=== PATIENT | female | born 1960 | race Caucasian/White ===

== ENCOUNTER → 2019-11-17 15:38 | Outpatient (CLI) | payer SELFPAY ==
[2019-11-17 10:13] VITALS: BMI 30.9
== END ==
PROVIDERS: Visit Provider Nurse Practitioner
DX: T14.8XXA Other injury of unspecified body region, initial encounter (principal)
CPT/HCPCS: 87075

== ENCOUNTER → 2021-02-20 21:20 | Outpatient (CLI) | payer OTHER, SELFPAY ==
[2021-02-20 17:49] VITALS: BMI 29.5
[2021-02-20 21:30] LABS: Absolute Lymphocyte Count 3.51 X10^3/uL (0.83-4.51); Absolute Neutrophil Count 4.4 X10^3/uL (2.0-7.7); Basophil# 0.08 X10^3/uL; Basophil% 0.9 % (0-1); Eosinophils% 2.3 % (0-5); Hematocrit 42.7 % (37-47); Hemoglobin 14.1 g/dL (12.0-15.0); Lymphocyte # 3.51 X10^3/ul (4.0); Lymphocyte % 40.3 % (19-41); Mean Corpuscular Hgb 29.1 pg (27.0-32.0); Mean Platelet Vol. 10.9 fl (6.2-12.0); Monocyte# 0.52 X10^3/uL; NRBC Flagged by Analyzer 0 % (0-5); Neutrophil # 4.39 X10^3/uL (2.7-7.7); Neutrophil % 50.4 % (47-70); Platelet Count 340 K/mm3 (150-450); RBC Distribution Width CV 12.4 % (11.6-14.6); RBC Distribution Width SD 40.1 fl (35.1-43.9); Red Blood Count 4.85 M/mm3 (4.2-5.4); White Blood Count 8.7 K/mm3 (4.4-11.0)
[2021-02-20 21:41] LABS: AST(SGOT) 13 U/L (15-37); Alanine Aminotransfer ALT/SGPT 26 U/L (13-56); Albumin, Serum 3.9 g/dL (3.2-5.0); Alkaline Phosphatase 115 U/L (45-117); Anion Gap 3 (5-15); BUN 22 mg/dL (7-18); BUN/Creat Ratio 27.2 RATIO (10-20); Calcium,Total 9.5 mg/dL (8.5-10.1); Chloride 100 mmol/L (98-107); Cholesterol 199 mg/dL (200); Creatinine, Serum 0.81 mg/dL (0.55-1.02); EST Glomerular Filtration Rate 77 mL/min (>60); Est Glom Filt Rate - Afr Amer 93 mL/min (>60); Globulin 3.8 g/dL (2.2-4.2); Glucose 382 mg/dL (74-106); High Density Lipoprotein 40 mg/dL; Potassium 4.8 mmol/L (3.5-5.1); Protein, Total 7.7 g/dL (6.4-8.2); Sodium Level 133 mmol/L (136-145); Triglycerides 222 mg/dL; Very Low Density Lipoprotein 44 mg/dL (5-40)
== END ==
PROVIDERS: PCP Nurse Practitioner; Referring Provider Nurse Practitioner; Visit Provider Nurse Practitioner
DX: E13.9 Other specified diabetes mellitus without complications (principal); I10 Essential (primary) hypertension
CPT/HCPCS: 80053; 80061; 85025

== ENCOUNTER → 2021-08-28 21:28 | Outpatient (CLI) | payer OTHER, SELFPAY | PROVIDERS: PCP Nurse Practitioner; Referring Provider Nurse Practitioner; Visit Provider Nurse Practitioner | DX: E13.9 Other specified diabetes mellitus without complications (principal) ==

== ENCOUNTER → 2022-06-14 | Outpatient (CLI) | payer OTHER, SELFPAY ==
[2022-06-14 21:42] LABS: Absolute Lymphocyte Count 3.26 X10^3/uL (0.83-4.51); Absolute Neutrophil Count 5.7 X10^3/uL (2.0-7.7); Basophil# 0.09 X10^3/uL; Basophil% 0.9 % (0-1); Eosinophil# 0.24 X10^3/uL; Eosinophils% 2.4 % (0-5); Hematocrit 45.9 % (37-47); Hemoglobin 14.9 g/dL (12.0-15.0); Lymphocyte # 3.26 X10^3/ul (0.83-4.51); Lymphocyte % 32.6 % (19-41); Mean Corp Hgb Conc 32.5 g/dL (32-36); Mean Corpuscular Hgb 29.8 pg (27.0-32.0); Mean Corpuscular Volume 91.8 fL (81-99); Mean Platelet Vol. 10.3 fl (6.2-12.0); Monocyte# 0.71 X10^3/uL; Monocyte% 7.1 % (0-10); NRBC Flagged by Analyzer 0 % (0-5); Neutrophil # 5.69 X10^3/uL (2.7-7.7); Neutrophil % 56.8 % (47-70); Platelet Count 365 K/mm3 (150-450); RBC Distribution Width CV 13.7 % (11.6-14.6); RBC Distribution Width SD 46.7 fl (35.1-43.9)
[2022-06-14 22:02] LABS: Vitamin B12 646 pg/mL (211-911)
[2022-06-14 22:03] LABS: ALB/GLOB Ratio 1.3 RATIO (0.9-2.4); AST(SGOT) 15 U/L (15-37); Alanine Aminotransfer ALT/SGPT 24 U/L (13-56); Albumin, Serum 3.9 g/dL (3.2-5.0); Alkaline Phosphatase 87 U/L (45-117); Anion Gap 6 (5-15); BUN 20 mg/dL (7-18); BUN/Creat Ratio 24.8 RATIO (10-20); Calcium,Total 9.5 mg/dL (8.5-10.1); Chloride 106 mmol/L (98-107); Cholesterol 111 mg/dL (200); Creatinine, Serum 0.81 mg/dL (0.55-1.02); EST Glomerular Filtration Rate 77 mL/min (>60); Est Glom Filt Rate - Afr Amer 93 mL/min (>60); Globulin 3.1 g/dL (2.2-4.2); Glucose 228 mg/dL (74-106); High Density Lipoprotein 39 mg/dL; Potassium 5.3 mmol/L (3.5-5.1); Sodium Level 140 mmol/L (136-145); Triglycerides 189 mg/dL; Very Low Density Lipoprotein 38 mg/dL (5-40)
== END | disposition home or self-care (01) ==
PROVIDERS: Referring Provider Nurse Practitioner; Visit Provider Nurse Practitioner
DX: E11.65 Type 2 diabetes mellitus with hyperglycemia (principal); I10 Essential (primary) hypertension; R53.83 Other fatigue
CPT/HCPCS: 80053; 80061; 82607; 84443; 85025

== ENCOUNTER → 2022-09-30 | Outpatient (CLI) | payer OTHER, SELFPAY ==
[2022-09-30 22:05] LABS: Absolute Lymphocyte Count 3.36 X10^3/uL (0.83-4.51); Absolute Neutrophil Count 9.8 X10^3/uL (2.0-7.7); Basophil% 0.7 % (0-1); Eosinophil# 0.39 X10^3/uL; Eosinophils% 2.7 % (0-5); Hematocrit 45.4 % (37-47); Hemoglobin 14.3 g/dL (12.0-15.0); Lymphocyte # 3.36 X10^3/ul (0.83-4.51); Lymphocyte % 22.8 % (19-41); Mean Corp Hgb Conc 31.5 g/dL (32-36); Mean Corpuscular Hgb 28.5 pg (27.0-32.0); Mean Corpuscular Volume 90.6 fL (81-99); Mean Platelet Vol. 10.8 fl (6.2-12.0); Monocyte# 1.06 X10^3/uL; Monocyte% 7.2 % (0-10); NRBC Flagged by Analyzer 0 % (0-5); Neutrophil # 9.75 X10^3/uL (2.7-7.7); Neutrophil % 66.3 % (47-70); Platelet Count 310 K/mm3 (150-450); RBC Distribution Width SD 46.5 fl (35.1-43.9); Red Blood Count 5.01 M/mm3 (4.2-5.4); White Blood Count 14.7 K/mm3 (4.4-11.0)
[2022-09-30 22:55] LABS: ALB/GLOB Ratio 1.1 RATIO (0.9-2.4); AST(SGOT) 18 U/L (15-37); Alanine Aminotransfer ALT/SGPT 26 U/L (13-56); Albumin, Serum 3.9 g/dL (3.2-5.0); Alkaline Phosphatase 96 U/L (45-117); Anion Gap 8 (5-15); BUN 20 mg/dL (7-18); BUN/Creat Ratio 25.1 RATIO (10-20); Calcium,Total 9.6 mg/dL (8.5-10.1); Chloride 104 mmol/L (98-107); EST Glomerular Filtration Rate 78 mL/min (>60); Est Glom Filt Rate - Afr Amer 94 mL/min (>60); Globulin 3.6 g/dL (2.2-4.2); Glucose 128 mg/dL (74-106); Lipase 79 U/L (73-393); Potassium 4.6 mmol/L (3.5-5.1); Protein, Total 7.5 g/dL (6.4-8.2); Sodium Level 138 mmol/L (136-145)
== END | disposition home or self-care (01) ==
PROVIDERS: Visit Provider Nurse Practitioner
DX: R11.10 Vomiting, unspecified (principal); E11.65 Type 2 diabetes mellitus with hyperglycemia; K21.9 Gastro-esophageal reflux disease without esophagitis
CPT/HCPCS: 80053; 83036; 83690; 85025; 86141

== ENCOUNTER → 2023-01-31 | Outpatient (CLI) | payer BC, SELFPAY ==
[2023-01-31 22:36] LABS: Absolute Lymphocyte Count 3.32 X10^3/uL (0.83-4.51); Absolute Neutrophil Count 5.2 X10^3/uL (2.0-7.7); Basophil# 0.06 X10^3/uL; Basophil% 0.6 % (0-1); Eosinophil# 0.24 X10^3/uL; Eosinophils% 2.5 % (0-5); Hematocrit 43.8 % (37-47); Lymphocyte # 3.32 X10^3/ul (0.83-4.51); Lymphocyte % 34.9 % (19-41); Mean Corpuscular Hgb 29.2 pg (27.0-32.0); Mean Corpuscular Volume 91.3 fL (81-99); Mean Platelet Vol. 10.4 fl (6.2-12.0); Monocyte# 0.68 X10^3/uL; Monocyte% 7.1 % (0-10); NRBC Flagged by Analyzer 0 % (0-5); Neutrophil # 5.21 X10^3/uL (2.7-7.7); Neutrophil % 54.8 % (47-70); Platelet Count 347 K/mm3 (150-450); RBC Distribution Width CV 13.2 % (11.6-14.6); RBC Distribution Width SD 44.5 fl (35.1-43.9); White Blood Count 9.5 K/mm3 (4.4-11.0)
[2023-01-31 22:55] LABS: AST(SGOT) 16 U/L (15-37); Alanine Aminotransfer ALT/SGPT 28 U/L (13-56); Albumin, Serum 3.8 g/dL (3.2-5.0); Alkaline Phosphatase 78 U/L (45-117); Anion Gap 7 (5-15); BUN 23 mg/dL (7-18); BUN/Creat Ratio 25.8 RATIO (10-20); CRP, High Sensitivity Cardiac 0.82 mg/L; Calcium,Total 9.5 mg/dL (8.5-10.1); Chloride 105 mmol/L (98-107); Creatinine, Serum 0.89 mg/dL (0.55-1.02); EST Glomerular Filtration Rate 68 mL/min (>60); Est Glom Filt Rate - Afr Amer 82 mL/min (>60); Glucose 132 mg/dL (74-106); Protein, Total 7.8 g/dL (6.4-8.2); Sodium Level 139 mmol/L (136-145)
== END | disposition home or self-care (01) ==
PROVIDERS: Visit Provider Nurse Practitioner
DX: R19.7 Diarrhea, unspecified (principal); E11.65 Type 2 diabetes mellitus with hyperglycemia; R79.82 Elevated C-reactive protein (CRP)
CPT/HCPCS: 80053; 85025; 86141

== ENCOUNTER → 2023-02-08 | Outpatient (CLI) | payer BC, SELFPAY | END | disposition home or self-care (01) | PROVIDERS: Visit Provider Nurse Practitioner | DX: R30.0 Dysuria (principal); N30.90 Cystitis, unspecified without hematuria | CPT/HCPCS: 87086; 87088 ==

== ENCOUNTER → 2023-03-03 | Outpatient (CLI) | payer BC, SELFPAY | END | disposition home or self-care (01) | PROVIDERS: Referring Provider Nurse Practitioner; Visit Provider Nurse Practitioner | DX: R35.0 Frequency of micturition (principal) | CPT/HCPCS: 87086; 87088 ==

== ENCOUNTER → 2023-04-06 | Outpatient (CLI) | payer BC, SELFPAY | END | disposition home or self-care (01) | PROVIDERS: Visit Provider Nurse Practitioner | DX: R35.0 Frequency of micturition (principal) | CPT/HCPCS: 87086; 87088 ==

== ENCOUNTER → 2023-05-11 | Outpatient (CLI) | payer BC, SELFPAY | END | disposition home or self-care (01) | PROVIDERS: Visit Provider Nurse Practitioner | DX: R35.0 Frequency of micturition (principal) | CPT/HCPCS: 87086 ==

== ENCOUNTER → 2023-05-26 | Outpatient (CLI) | payer BC, SELFPAY ==
--- NOTE | 2023-05-26 | CYSPIN_PTH ---
PATIENT: SRIRAM PICKERING LOC: [facility] U#:[id number] AGE/SX: 63/F ROOM: RE05/26/[address]: Dr. Brittni Griffin MD : 1960 BED: DIS: 05/26/2023 SPEC #: [id number] RECD: 05/26/23 15:00 STATUS: SUZANNE MCKINNEY #: [id number] JUAN: 05/26/23 00:[address]: Brittni Griffin DEPT: CYTOLOGY RECD BY: Belén Amin Tissues: Urine Procedures: Pap Stain (control) Special Stain Group II Special Stain Group I GMS Stain (control) Cytospin Fluid HEADER OPERATION: Not noted PRE-OP DIAGNOSIS: Gross hematuria TISSUE SUBMITTED: Urine for cytology DIAGNOSIS CYTOLOGY Urine for cytology (cytospin): Atypical urothelial cells (AUC) is noted, Veronica System Category III. Marked acute inflammation. See comment. NEGIN:edna 05/27/2023 COMMENT Special stain for fungi is positive for numerous organisms (yeast); matched control is appropriate. Clinical correlation and appropriate follow up are necessary. The Veronica System for urine cytology diagnostic categorization was used in the evaluation of this case. Case has been reviewed in consultation with Dr. Cohn who concurs with the above diagnosis. IDC:AM CYTOLOGY STUDY Slides are reviewed. CYTOLOGY GROSS Received is 20 ml of cloudy sue fluid labeled with the patient's name and and designated per the requisition as urine. Submitted for cytology preparation. / edna 05/26/2023 TC:2 CPT: 14381, 17638
[2023-05-26 17:46] LABS: Cytology, Body Fluid / CSF SEE PATHOLOGY REPORT
== END | disposition home or self-care (01) ==
PROVIDERS: Visit Provider Urology
DX: R31.0 Gross hematuria (principal)
CPT/HCPCS: 88108; 88312; 88313

== ENCOUNTER → 2023-06-08 | Outpatient (CLI) | payer BC, SELFPAY ==
--- NOTE | 2023-06-08 06:52 | CT_ITS ---
INDICATION: FLANK PAIN/ABD PAIN/URGENCY EXAMINATION: CT ABDOMEN AND PELVIS WITHOUT CONTRAST - CT Abdomen And Pelvis W/O Contrast Injection TECHNIQUE: Helically acquired images were obtained of the abdomen and pelvis without oral or IV contrast. A radiation dose optimization technique was used for this scan. IV Contrast dosage and agent: None. Oral contrast: None. RADIATION DOSAGE (If Supplied By Facility): CTDIvol = ( 6.68 ) mGy, DLP = ( 335.50 ) mGycm COMPARISON: FINDINGS: LOWER CHEST: Lung bases are clear. No cardiomegaly or pericardial effusion. There are calcifications of the coronary arteries and aortic valve annulus. LIVER: Homogeneous. No focal mass. Portal vein diameter is 13 mm. GALLBLADDER AND BILIARY TREE: No calcified gallstones. No gallbladder distension or wall edema. No intra- or extrahepatic biliary ductal dilation. PANCREAS: No focal cystic or solid mass. SPLEEN: Normal size without focal cystic or solid mass. ADRENAL GLANDS: No nodules. KIDNEYS AND URETERS: Normal renal size and position. No hydronephrosis. PERITONEUM: No ascites or free air. No other fluid collection. BOWEL: Very small hiatal hernia is suggested. No evidence of acute appendicitis. No stomach or bowel distension. A 2.3 x 1.25 x 1.6 cm collection of gas and debris projecting to severs anterior to the spine at the mid abdomen (series 2 image 66, series 601 image 54) is difficult to connect with adjacent loops of nong[place] filled bowel, but may be a diverticulum at the junction of the third and fourth portions of the duodenum. No focal inflammatory change. LYMPH NODES: No enlarged mesenteric or retroperitoneal lymph nodes. VESSELS: Moderate to moderately severe atherosclerotic calcific plaquing of the infrarenal aorta and common iliac arteries. Aorta is non-dilated. URINARY BLADDER: Unremarkable. REPRODUCTIVE ORGANS: Normal size, retroflexed uterus. No pelvic masses. ABDOMINAL WALL: No discrete abdominal or pelvic wall hernia. BONES: Degenerative changes are seen in the lower thoracic and lower lumbar spine, the latter particularly involving the L4-5 and L5-S1 facet joints. No lytic or blastic abnormality. CT/Abdomen/Pelvis without Cont IMPRESSION: 1. No distinct CT finding to account for the patient''s complaints. 2. Very small hiatal hernia suggested. 3. Mild to moderate aortoiliac atherosclerotic calcific plaquing. No aortic aneurysm. 4. Lower lumbar facet arthropathies. Electronically Signed: Inocencio Cruz MD at 9:00 EDT Reading Location ID and State: [id number] / Unknown , Service support ,
== END | disposition home or self-care (01) ==
LOC: CT 06:49
PROVIDERS: PCP Nurse Practitioner; Referring Provider Urology; Visit Provider Urology
DX: R10.30 Lower abdominal pain, unspecified (principal); R39.15 Urgency of urination
CPT/HCPCS: 74176

== ENCOUNTER 2023-07-07 10:57 | Day surgery (SDC) | payer BC, SELFPAY ==
--- NOTE | 2023-07-05 09:21 | EKG12_ITS ---
Test Reason : PRE OP Blood Pressure : / mmHG Vent. Rate : 102 BPM Atrial Rate : 102 BPM P-R Int : 132 ms QRS Dur : 088 ms QT Int : 344 ms P-R-T Axes : 033 015 050 degrees QTc Int : 448 ms Sinus tachycardia Low voltage QRS Borderline ECG Confirmed by SUJEY MARCIAL ([id number]), editor managing director LISS CADE ([id number]) on 07/11/2023 1:50:37 PM Referred By: Brittni Griffin Confirmed By:SUJEY MARCIAL
[2023-07-05 10:12] LABS: Hematocrit 44.4 % (37-47); Hemoglobin 14.1 g/dL (12.0-15.0); Mean Corp Hgb Conc 31.8 g/dL (32-36); Mean Corpuscular Hgb 30.1 pg (27.0-32.0); Mean Corpuscular Volume 94.7 fL (81-99); Mean Platelet Vol. 9.5 fl (6.2-12.0); Platelet Count 346 K/mm3 (150-450); RBC Distribution Width CV 13.2 % (11.6-14.6); RBC Distribution Width SD 45.4 fl (35.1-43.9); Red Blood Count 4.69 M/mm3 (4.2-5.4)
[2023-07-05 10:44] LABS: Anion Gap 4 (5-15); BUN 13 mg/dL (7-18); BUN/Creat Ratio 19.9 RATIO (10-20); Chloride 104 mmol/L (98-107); Creatinine, Serum 0.65 mg/dL (0.55-1.02); EST Glomerular Filtration Rate 97 mL/min (>60); Est Glom Filt Rate - Afr Amer 118 mL/min (>60); Glucose 159 mg/dL (74-106); Potassium 4.4 mmol/L (3.5-5.1); Sodium Level 138 mmol/L (136-145)
[2023-07-05 10:47] LABS: Hemoglobin A1c 8.1 % (3.8-5.6)
[2023-07-07] VITALS (7 sets, daily range): BP systolic 83–118; BP diastolic 55–71; PULSE 94–108; RESP 16–18; TEMP 36.2–37.1; O2SAT 92–99; BMI 26.1
--- NOTE | 2023-07-07 | VUL_PTH ---
PATIENT: SRIRAM PICKERING LOC: [facility] [place] U#:[id number] AGE/SX: 63/F ROOM: RE07/07/[address]: Dr. Brittni Griffin MD : 1960 BED: DIS: 07/07/2023 SPEC #: [id number] RECD: 07/07/23 14:08 STATUS: SUZANNE HURDAdelaida #: [id number] JUAN: 07/07/23 00:[address]: Brittni Griffin DEPT: SURGICAL PATHOLOGY RECD BY: Alek Cedillo ENTERED: 07/08/23 08:01 SP TYPE: VULVA BX OTHR DR: Luann Christensen, AUTO BODY CUSTOMIZER-C Tissues: Vulva, NOS Procedures: Surgery Specimen Level IV HEADER OPERATION: Urethral dilation, cysto, vulvar biopsy PRE-OP DIAGNOSIS: Recurrent UTI, vulvar lesion TISSUE SUBMITTED: Vulvar biopsy MICROSCOPIC DIAGNOSIS Vulvar biopsy: High-grade squamous epithelial lesion, vulvar intraepithelial neoplasia (ELVIE II), lateral margin involved. See comment. SJ:edna 07/20/2023 COMMENT The specimen is sent to [facility] for expert opinion, reviewed by Dr. Jesus Decker and the above diagnosis is rendered. Dr. Jesus Decker also commented increased mitosis is present. Ki67 increased stain and P16 negative. The complete report is viewable in the patient's EMR. Results from immunohistochemistry ([id number]) for surrogate HPV marker (p16) will be reported separately. Case has been reviewed in consultation with Dr. Cohn who concurs with the above diagnosis. IDC:AM MICROSCOPIC DESCRIPTION Slides are reviewed. GROSS DESCRIPTION Received in fixative is one container labeled with the patient's name and designated vulvar biopsy. The specimen consists of one irregular fragment of light keys soft tissue that measures 0.2 x 0.2 x 0.1 cm. The specimen is totally submitted in one cassette. / AM:edna 07/08/2023 TC: CPT: 51670
--- NOTE | 2023-07-07 | IMM_PTH ---
PATIENT: SRIRAM PICKERING LOC: [facility] [place] U#:[id number] AGE/SX: 63/F ROOM: RE07/07/[address]: Dr. Brittni Griffin MD : 1960 BED: DIS: 07/07/2023 SPEC #: [id number] RECD: 07/12/23 14:07 STATUS: SUZANNE REAdelaida #: [id number] JUAN: 07/07/23 00:[address]: Brittni Griffin DEPT: IMMUNOHISTOCHEMISTRY RECD BY: Neema Enrique ENTERED: 07/12/23 14:08 SP TYPE: IMMUNO OTHR DR: Luann Christensen, PATIENT SUPPORT SPECIALIST-C Tissues: Vulva, NOS Procedures: p16 (initial) KI-67 (add) PHYSICIAN & INSTITUTION [place] [id number] SPECIMEN INFORMATION: Tissue Source: Vulva Clinical Info: Recurrent UTI, vulvar lesion Specimen Number: [id number] CPT code: 27039, 71624 METHODOLOGY: Deparaffinized sections of prefer/formalin-fixed tissue or PAP/DQ stained slides are incubated with monoclonal/polyclonal antibodies/oligonucleotide probes. Localization is made via biotin free immunoperoxidase method. Appropriate controls are performed and reacted as expected. Results on target cell population are indicated in the following table: RESULTS: ANTIBODY / CLONE RESULT P16 (E6H4) negative Ki-67 (30-9) positive, 95% These tests were developed and their performance characteristics determined by [facility]. They may not have been cleared or approved by the U.S. Food and Drug Administration. The FDA has determined that such clearance or approval is not necessary. The above immunohistochemical/dualISH markers are ordered and reviewed by the Pathologist. INTERPRETATION: Vulvar biopsy: High-grade squamous epithelial lesion, vulvar intraepithelial neoplasia (ELVIE II), lateral margin involved. See comment. NEGIN:edna 07/20/2023 Comment: The specimen is sent to [facility] for expert opinion, reviewed by Dr. Jesus Decker and the above diagnosis is rendered. The complete report is viewable in the patient's EMR. Case has been reviewed in consultation with Dr. Cohn who concurs with the above diagnosis. IDC:AM
--- NOTE | 2023-07-07 10:52 | PCM.OPRPT ---
Report of Operation Date of Procedure: 07/07/23 Pre-Operative Diagnosis: Recurrent urinary tract infections, urethral stenosis, vulvar lesion Post-Operative Diagnosis: Same Surgery/Procedure Performed:: Urethral dilation, cystourethroscopy, vulvar biopsy Surgeon: Brittni Griffin Type of Anesthesia: MAC Specimen's removed: Vulvar punch biopsy Description of Procedure: The patient is a 63-year-old female with recurrent urinary tract infections. On attempted cystoscopy in the office, it was found that the urethra was strictured and I was unable to pass the cystoscope. She now presents for urethral dilation, cystoscopy with possible biopsy and vulvar biopsy for lesion identified in the midline. Informed consent has been obtained. The patient was taken to the operating room and placed on the operating room table. Anesthesia monitored the head, neck, airway, IV access and vital signs throughout the case. Once anesthesia was appropriately administered, the patient was placed into dorsolithotomy position was prepped and draped in usual sterile fashion. The urethra was then dilated starting with 12 Filipino dilators and sequentially increasing to a total of 30 Filipino. There was cracking of the mucosa. The cystoscope was then inserted through the urethra under direct visualization into the urinary bladder. The bladder mucosa was visualized in its entirety. The detrusor was found to be hypertrophic with several diverticula, none of which appeared to have mucosal changes consistent with cancer. There was a significant amount of debris and erythema of the tissue likely secondary to where the dilators were inserted. There were no areas of concern for cancer. bilateral ureteral orifices were located in the correct anatomic position on the area of the trigone. At this time attention was turned towards the 3 mm midline vulvar sclerotic lesion. Local anesthetic 1 cc was injected underneath the lesion. A punch biopsy was used to gain full-thickness tissue which was sent for permanent section evaluation. Silver nitrate was applied to the biopsy site. The patient was then awakened and taken to the recovery room in good condition. There were no complications during this procedure. Complications None Admit VTE Documentation VTE Present on Admission: Yes VTE Mechan Device Prophylaxis: SCD's VTE Pharm Prophylaxis ordered?: No Reason prophylaxis not ordered:: Treatment Not Indicated
--- NOTE | 2023-07-07 10:55 | EX.PCM.DISCH ---
Discharge Instructions Diet Discharge Diet: No restrictions Activity Discharge Activity: Return to Normal Activity Dressing / Incision Call your doctor if your incision/area has: Continuous Slow Oozing, Sudden Increased Bleeding, Increased Pain/ Swelling, Increased Redness, Foul Smelling Discharge and Swelling at the incision site Call your doctor if you observe: Fever of 101 or Higher, Inability to urinate and Inability to have a bowel movement Follow Up Care Please Follow Up With: Brittni Griffin MD When: The office will call the patient tomorrow to make arrangements for follow-up next week for biopsy results Test Results: Test results from this visit will be discussed in further detail at your follow-up appointment, if applicable. Discharge Plan Admission Attending Provider: Brittni Griffin Primary Care Provider: Luann Christensen NP Discharge Orders/Prescriptions Prescriptions: New sulfamethoxazole-trimethoprim [sulfamethoxazole-trimethoprim] 800-160 mg tablet 1 tab PO BID 3 Days Qty: 6 0RF oxycodone-acetaminophen [Percocet] 5-325 mg tablet 1 tab PO Q8H PRN (Reason: pain) 3 Days Qty: 6 0RF Continued cholecalciferol (vitamin D3) 25 mcg (1,000 unit) capsule 25 mcg PO DAILY vitamin B complex [B Complex-Vitamin B12] Tablet 1 tab PO DAILY omega-3 fatty acids 500 mg capsule 500 mg PO DAILY (DME) pen needle, diabetic [BD Ultra-Fine Teresa Pen Needle] 32 gauge x 5/32 needle See Rx Instructions .ROUTE .MEDSUPPLY Qty: 50 12RF Rx Instructions: As directed rosuvastatin [Crestor] 5 mg tablet 5 mg PO DAILY Qty: 30 12RF Jardiance 25 mg tablet 25 mg PO QAM Qty: 30 12RF metformin 850 mg tablet 850 mg PO BID Qty: 180 3RF Lantus Solostar U-100 Insulin 100 unit/mL (3 mL) insulin pen 35 unit SC DAILY Patient Comments: 19 u before surgery Rx Instructions: 20U am 25 U PM glimepiride 2 mg tablet 2 mg PO DAILY Patient Comments: TAKE 1 TABLET BY MOUTH ONCE DAILY with the first main meal. (to be taken in combination with pioglitazone) acetaminophen 325 mg capsule 650 mg PO Q4H PRN (Reason: pain) pantoprazole 40 mg tablet,delayed release (DR/EC) 40 mg PO DAILY PRN (Reason: GERD) zolpidem 10 mg tablet 10 mg PO QHS PRN (Reason: insomnia) Qty: 30 5RF dulaglutide 4.5 mg/0.5 mL pen injector 4.5 mg subcut QWEEK Qty: 2 12RF Referrals / Follow Up: Luann Christensen EXHAUST MACHINE OPERATOR, EXHAUST MACHINE OPERATOR-C [Primary Care Provider] - Disposition Disposition (needs filled in before D/C Order can be placed): Home, Self Care
[2023-07-07 11:44] LABS: Bedside Glucose 185 mg/dL (74-106)
[2023-07-07] MEDS: Lactated Ringers 1,000 ML 15 ML IV (11:45)
[2023-07-07] MEDS: Ciprofloxacin 400 MG/200 ML BAG 200 MG IV (11:50)
[2023-07-07] MEDS: Bupivacaine Mpf 0.5% 30 ML VIAL (12:30)
[2023-07-07] MEDS: Silver Nitrate (BKC) 1 EACH (12:40)
== END 2023-07-07 13:40 | disposition home or self-care (01) ==
LOC: SDC 10:59 → AC 11:00
PROVIDERS: Anesthesiology; PCP Nurse Practitioner; Referring Provider Urology; Visit Provider Urology
PROC: 0TBB8ZX Excision of Bladder, Via Natural or Artificial Opening Endoscopic, Diagnostic (ICD-10-PCS; CPT 52351; principal; 2023-07-07 12:35)
DX: N90.1 Moderate vulvar dysplasia (principal); Z79.4 Long term (current) use of insulin; E11.9 Type 2 diabetes mellitus without complications; N90.89 Other specified noninflammatory disorders of vulva and perineum; R35.0 Frequency of micturition; N39.41 Urge incontinence; R30.0 Dysuria; R33.9 Retention of urine, unspecified; R10.9 Unspecified abdominal pain; K21.9 Gastro-esophageal reflux disease without esophagitis; F17.200 Nicotine dependence, unspecified, uncomplicated; Z79.899 Other long term (current) drug therapy; Z79.84 Long term (current) use of oral hypoglycemic drugs
CPT/HCPCS: 52351; 56605; 00910; 36415; 80048; 82962; 83036; 85027; 88305; 88341; 88342; 93005; J7120; J0744; J2405

== ENCOUNTER 2023-10-27 18:13 | Emergency (ER) | payer BC, SELFPAY ==
[2023-10-27 18:16] VITALS: BP 110/72; PULSE 110; RESP 16; TEMP 36.8; O2SAT 98; BMI 24.5
[2023-10-27 18:34] LABS: Mucous, Urine 0 SEEN /hpf (<or=2+); Red Blood Cells-Urine 0 SEEN /hpf (0-5); Squamous Epithelial Cells - UA 0 SEEN /hpf (5-10)
[2023-10-27 18:38] LABS: Color, Urine Yellow (Yellow); Glucose, Dipstick 1000 mg/dl (Normal); Ketone-Dipstick Negative (Negative); Leukocyte Esterase-Dipstick 500 /ul (Negative); Nitrite-Dipstick Negative (Negative); Occult Blood-Urine 150 /ul (Negative); Protein-Dipstick 30 mg/dl (Negative); Urine Bilirubin Dipstick Negative (Negative); Urine Clarity Cloudy (Clear); Urine Urobilinogen Normal (Normal)
[2023-10-27 18:48] LABS: Bacteria 3+ /hpf (None Seen); White Blood Cells >100 SEEN /hpf (0-5)
[2023-10-27] MEDS: 0.9% Normal Saline (1000mL) 1,000 ML 1000 ML IV (21:31)
[2023-10-27 21:35] LABS: Absolute Lymphocyte Count 1.84 X10^3/uL (0.83-4.51); Absolute Neutrophil Count 8.8 X10^3/uL (2.0-7.7); Basophil# 0.08 X10^3/uL; Basophil% 0.7 % (0-1); Eosinophil# 0.03 X10^3/uL; Eosinophils% 0.2 % (0-5); Hemoglobin 11.9 g/dL (12.0-15.0); Lymphocyte # 1.84 X10^3/ul (0.83-4.51); Lymphocyte % 15.1 % (19-41); Mean Corp Hgb Conc 33.1 g/dL (32-36); Mean Corpuscular Hgb 28.1 pg (27.0-32.0); Mean Corpuscular Volume 85.1 fL (81-99); Mean Platelet Vol. 10.1 fl (6.2-12.0); Monocyte# 1.34 X10^3/uL; NRBC Flagged by Analyzer 0 % (0-5); Neutrophil % 72.3 % (47-70); Platelet Count 587 K/mm3 (150-450); RBC Distribution Width CV 13.4 % (11.6-14.6); RBC Distribution Width SD 41.8 fl (35.1-43.9); Red Blood Count 4.23 M/mm3 (4.2-5.4); White Blood Count 12.2 K/mm3 (4.4-11.0)
[2023-10-27 21:48] LABS: Anion Gap 9 (5-15); BUN 42 mg/dL (7-18); Calcium,Total 9.4 mg/dL (8.5-10.1); Chloride 91 mmol/L (98-107); EST Glomerular Filtration Rate 37 mL/min (>60); Est Glom Filt Rate - Afr Amer 45 mL/min (>60); Estimated Creatinine Clearance 28.97 ml/min; Glucose 389 mg/dL (74-106); Potassium 4.5 mmol/L (3.5-5.1); Sodium Level 126 mmol/L (136-145)
[2023-10-27] MEDS: Ciprofloxacin 500 MG Tablet PO (23:04)
[2023-10-27 23:06] VITALS: BP 129/85; PULSE 89; RESP 16; O2SAT 99
--- NOTE | 2023-10-27 23:07 | EDS_ITS ---
HPI History of Present Illness Chief Complaint: General Illness Narrative Narrative: 63-year-old female presenting with urinary frequency. Patient states she has history of UTIs. She states she was called by [facility] and told to come to the emergency room today out of concern that she might be septic due to a CT scan was performed 6 days ago. Patient states this was a CT of the abdomen pelvis with and without IV contrast. Patient states that was performed at [facility]. Patient states she was first called today. Denies fever, chills, nausea, vomiting. She does have diarrhea which is fairly constant. She does admit to dysuria and frequency. She states she has trouble sleeping at night sometimes. Patient states she was told to come to [place] [facility] because this is where her urologist is. [facility] Medical History Anemia Cancer Diabetes Difficulty swallowing Dog bite of face Gastric reflux History of IBS History of stress test Hyperlipidemia Hypertriglyceridemia Insulin dependent diabetes mellitus Leg cramps Open wound Overactive bladder due to prolapse of female genital organ Post-menopausal Recurrent urinary tract infection Restless legs Smoker Smoking addiction Type 2 diabetes mellitus Wears glasses Home Medications cholecalciferol (vitamin D3) 25 mcg (1,000 unit) capsule 25 mcg PO DAILY 10/30/20 [History Last Taken Unknown] omega-3 fatty acids 500 mg capsule 500 mg PO DAILY 10/30/20 [History Last Taken Unknown] vitamin B complex (B Complex-Vitamin B12 tablet) 1 tab PO DAILY 10/30/20 [History Last Taken Unknown] pen needle, diabetic 32 gauge x 5/32 (BD Ultra-Fine Teresa Pen Needle) #50 ea 08/28/21 [Rx Last Taken Unknown] rosuvastatin 5 mg tablet (Crestor) 5 mg PO DAILY #30 tabs 12/03/22 [Rx Last Taken Unknown] dulaglutide 4.5 mg/0.5 mL subcutaneous pen injector 4.5 mg (0.5 mL) subcut QWEEK #2 mL 04/15/23 [Rx Last Taken Unknown] empagliflozin 25 mg tablet (Jardiance) 25 mg PO QAM #30 tabs 05/05/23 [Rx Last Taken Unknown] metformin 850 mg tablet 850 mg PO BID #180 tabs 05/05/23 [Rx Last Taken Unknown] insulin glargine 100 unit/mL (3 mL) subcutaneous pen (Lantus Solostar U-100 Insulin) 35 unit subcut DAILY 06/03/23 [History Last Taken 07/06/23] acetaminophen 325 mg capsule 650 mg PO Q4H PRN pain 07/01/23 [History Last Taken Unknown] glimepiride 2 mg tablet 2 mg PO DAILY 07/01/23 [History Last Taken Unknown] pantoprazole 40 mg tablet,delayed release 40 mg PO DAILY PRN GERD 07/01/23 [History Last Taken 07/07/23] zolpidem 10 mg tablet 10 mg PO QHS PRN insomnia #30 tabs 08/05/23 [Rx Last Taken Unknown] ciprofloxacin HCl 500 mg tablet (Cipro) 500 mg PO BID #14 tabs 10/27/23 [Rx Last Taken Unknown] Allergy/AdvReac Type Severity Reaction Status Date / Time codeine Allergy Severe throat Verified 10/27/23 18:15 swells Penicillins Allergy Severe Anaphylaxis Verified 10/27/23 18:15 clarithromycin AdvReac Severe Vomiting Verified 10/27/23 18:15 pioglitazone [From Actos] AdvReac Severe Diarrhea Verified 10/27/23 18:15 semaglutide [From Ozempic] AdvReac Severe makes her Verified 10/27/23 18:15 feel wierd Family History Father Diabetes Mother Heart disease Cancer Lung cancer Surgical History Amputation finger Cyst of stomach Status post LEEP (loop electrosurgical excision procedure) of cervix Social History Smoking Status: Current every day smoker tobacco type: cigarettes second hand exposure: Yes ROS ROS ED Constitutional Constitutional ED: Denies chills, fever(s) or sweats Eyes Eyes: Denies blurry vision or change in vision ENT ENT ED: Denies ear pain or sore throat Cardiovascular Cardiovascular: Denies chest pain, palpitations or racing heartbeat Respiratory/Chest Respiratory/Chest: Denies cough, dyspnea or sputum Gastrointestinal Gastrointestinal: Denies abdominal pain, constipation, diarrhea, nausea or vomiting Genitourinary Genitourinary ED: Reports dysuria and urinary frequency; Denies hematuria Musculoskeletal Musculoskeletal: Denies arthralgias, myalgias or neck pain Integumentary Denies abscess, Abrasions or rash Neurologic Neurologic: Denies headache(s), paresthesias or weakness Psychiatric Psychiatric: Denies anxiety, depression, suicidal ideation or suicidal thoughts Endocrine Endocrinology: Denies polydipsia or polyuria EXAM Physical Exam Const Vital Signs: 10/27/23 18:16 10/27/23 20:46 Temperature 98.2 F Temperature Source Temporal Pulse Rate 110 H Respiratory Rate 16 Respiratory Effort Normal Non-Labored Respiratory Pattern Normal Blood Pressure 110/72 Blood Pressure Mean 84 Pulse Ox 98 Oxygen Delivery Method Room Air Positive well nourished General Appearance ED: NAD; Negative for pallor HEENT Reports moist mucous membranes Negative for trauma Eyes PERRL and EOMs intact bilaterally Neck no lymphadenopathy Chest Wall inspection of chest normal Resp normal respiratory effort Auscultation: Negative for rales, rhonchi or wheezes Cardio regular rate and regular rhythm Back/Spine no CVA tenderness Neuro oriented x3 and CN's II-XII intact bilaterally Sensorium / Orientation: alert Motor Exam: strength 5/5 throughout Psych mental status grossly normal Skin no rashes or lesions noted General Skin Exam: Negative for jaundice or pallor MDM MDM MDM Narrative Medical decision making narrative: Patient sent in for evaluation due to a CT scan which performed at [facility] 6 days ago. Patient states she has urinary frequency. Denies fever, chills, nausea, v omiting. She does have chronic diarrhea. She admits to chronic headaches and difficulty sleeping. Differential includes UTI, pyelonephritis, dehydration. CBC was obtained to assess for blood cell count, hemoglobin, platelets. BMP to assess renal function, electrolytes, glucose. Urinalysis to assess for UTI. Patient given IV fluids. Blood work shows minimal leukocytosis 12.2. Hemoglobin 11.9. Platelets are 587 and therefore high. Creatinine slightly elevated today at 1.50. Patient's last creatinine here was 0.65. Again patient was given IV fluids. Urinalysis consistent with UTI. Glucose is 389 without anion gap. Sodium 126 and likely due to pseudohyponatremia. Patient known to have diabetes and is poorly controlled. I was able to find the CT scanWhich showed that the patient had some bladder inflammation and a bladder diverticula and there was some concern for possible transitional cell carcinoma. Recommendation was for retrograde urethroscopy. I did domestic violence counselor the patient but this is what was recommended. I counseled her that she should follow-up with urology on an outpatient basis. She is continue to drink plenty of fluids. She started antibiotics for UTI. She will be given prescription for this which will be filled in the ER. Return precautions are discussed. Impression: 1. UTI 2. Dehydration Lab Data Attestation: I reviewed the patient's lab results. Labs: Laboratory Results - last 24 hr 10/27/23 10/27/23 18:30 20:50 WBC 12.2 H RBC 4.23 Hgb 11.9 L Hct 36.0 L MCV 85.1 MCH 28.1 MCHC 33.1 RDW Std Deviation 41.8 RDW Coeff of [place] 13.4 Plt Count 587 H MPV 10.1 Immature Gran % (Auto) 0.700 Neut % (Auto) 72.3 H Lymph % (Auto) 15.1 L [place] % (Auto) 11.0 H Eos % (Auto) 0.2 Baso % (Auto) 0.7 Absolute Neuts (auto) 8.8 H Absolute Lymphs (auto) 1.84 Nucleated RBC % 0 Sodium 126 L Potassium 4.5 Chloride 91 L Carbon Dioxide 26.0 Anion Gap 9 BUN 42 H Creatinine 1.50 H Estim Creat Clear Calc 28.97 Est GFR (MDRD) Af Amer 45 L Est GFR (MDRD) Non-Af 37 L BUN/Creatinine Ratio 28.0 H Glucose 389 H Calcium 9.4 Urine Color Yellow Urine Clarity Cloudy Urine pH 5.0 Ur Specific [place] 1.010 Urine Protein 30 H Urine Glucose (UA) 1000 H Urine Ketones Negative Urine Occult Blood 150 H Urine Nitrite Negative Urine Bilirubin Negative Urine Urobilinogen Normal Ur Leukocyte Esterase 500 H Urine RBC 0 SEEN Urine WBC >100 SEEN Ur Squamous Epith Cells 0 SEEN Urine Bacteria 3+ Urine Mucus 0 SEEN Discharge Plan Triage Chief Complaint: General Illness ED Provider: Eduardo Mckeon Dx/Rx/DC Orders Instructions: ED Diabetic Hyperglycemia, ED Cystitis Female Adult Prescriptions: New ciprofloxacin HCl [Cipro] 500 mg tablet 500 mg PO BID Qty: 14 0RF No Action cholecalciferol (vitamin D3) 25 mcg (1,000 unit) capsule 25 mcg PO DAILY vitamin B complex [B Complex-Vitamin B12] Tablet 1 tab PO DAILY omega-3 fatty acids 500 mg capsule 500 mg PO DAILY (DME) pen needle, diabetic [BD Ultra-Fine Teresa Pen Needle] 32 gauge x 5/32 needle See Rx Instructions .ROUTE .MEDSUPPLY Qty: 50 12RF Rx Instructions: As directed rosuvastatin [Crestor] 5 mg tablet 5 mg PO DAILY Qty: 30 12RF Jardiance 25 mg tablet 25 mg PO QAM Qty: 30 12RF metformin 850 mg tablet 850 mg PO BID Qty: 180 3RF Lantus Solostar U-100 Insulin 100 unit/mL (3 mL) insulin pen 35 unit SC DAILY Patient Comments: 19 u before surgery Rx Instructions: 20U am 25 U PM zolpidem 10 mg tablet 10 mg PO QHS PRN (Reason: insomnia) Qty: 30 5RF glimepiride 2 mg tablet 2 mg PO DAILY Patient Comments: TAKE 1 TABLET BY MOUTH ONCE DAILY with the first main meal. (to be taken in combination with pioglitazone) acetaminophen 325 mg capsule 650 mg PO Q4H PRN (Reason: pain) pantoprazole 40 mg tablet,delayed release (DR/EC) 40 mg PO DAILY PRN (Reason: GERD) dulaglutide 4.5 mg/0.5 mL pen injector 4.5 mg subcut QWEEK Qty: 2 12RF Primary Care Provider: Luann Christensen NP Referrals: Luann Christensen NP, JAMMER HOOKER-C [Primary Care Provider] - Disposition Disposition: Home, Self Care
== END 2023-10-27 23:19 | disposition home or self-care (01) ==
PROVIDERS: Emergency Provider Student in an Organized Health Care Education/Training Program; PCP Nurse Practitioner; Visit Provider Student in an Organized Health Care Education/Training Program
DX: N39.0 Urinary tract infection, site not specified (principal); E11.9 Type 2 diabetes mellitus without complications; E86.0 Dehydration; F17.210 Nicotine dependence, cigarettes, uncomplicated
CPT/HCPCS: 80048; 81001; 85025; 96360; 96361; 99283; J7030; A4216

== ENCOUNTER → 2024-04-27 | Outpatient (CLI) | payer BC, SELFPAY ==
[2024-04-27 21:00] LABS: ALB/GLOB Ratio 0.6 RATIO (0.9-2.4); AST(SGOT) 18 U/L (15-37); Alanine Aminotransfer ALT/SGPT 21 U/L (13-56); Alkaline Phosphatase 113 U/L (45-117); Anion Gap 9 (5-15); BUN 29 mg/dL (7-18); BUN/Creat Ratio 24.6 RATIO (10-20); Calcium,Total 9.7 mg/dL (8.5-10.1); Chloride 93 mmol/L (98-107); Creatinine, Serum 1.18 mg/dL (0.55-1.02); EST Glomerular Filtration Rate 49 mL/min (>60); Est Glom Filt Rate - Afr Amer 59 mL/min (>60); Globulin 4.8 g/dL (2.2-4.2); Glucose 452 mg/dL (74-106); Magnesium 2.4 mg/dL (1.6-2.6); Potassium 5.1 mmol/L (3.5-5.1); Protein, Total 7.8 g/dL (6.4-8.2); Sodium Level 126 mmol/L (136-145)
== END | disposition home or self-care (01) ==
PROVIDERS: PCP Nurse Practitioner; Referring Provider Nurse Practitioner; Visit Provider Nurse Practitioner
DX: E11.65 Type 2 diabetes mellitus with hyperglycemia (principal); E13.9 Other specified diabetes mellitus without complications
CPT/HCPCS: 80053; 83735

== ENCOUNTER → 2024-07-06 | Outpatient (CLI) | payer BC, SELFPAY ==
[2024-07-06 21:40] LABS: Absolute Lymphocyte Count 3.02 X10^3/uL (0.83-4.51); Absolute Neutrophil Count 5.1 X10^3/uL (2.0-7.7); Basophil# 0.08 X10^3/uL; Basophil% 0.9 % (0-1); Eosinophil# 0.28 X10^3/uL; Hematocrit 41.8 % (37-47); Hemoglobin 13.3 g/dL (12.0-15.0); Lymphocyte # 3.02 X10^3/ul (0.83-4.51); Lymphocyte % 32.9 % (19-41); Mean Corp Hgb Conc 31.8 g/dL (32-36); Mean Corpuscular Hgb 28.5 pg (27.0-32.0); Mean Corpuscular Volume 89.7 fL (81-99); Mean Platelet Vol. 10.8 fl (6.2-12.0); Monocyte# 0.67 X10^3/uL; Monocyte% 7.3 % (0-10); NRBC Flagged by Analyzer 0 % (0-5); Neutrophil # 5.12 X10^3/uL (2.7-7.7); Neutrophil % 55.7 % (47-70); Platelet Count 347 K/mm3 (150-450); RBC Distribution Width CV 13.5 % (11.6-14.6); RBC Distribution Width SD 43.9 fl (35.1-43.9); Red Blood Count 4.66 M/mm3 (4.2-5.4); White Blood Count 9.2 K/mm3 (4.4-11.0)
[2024-07-06 21:55] LABS: ALB/GLOB Ratio 0.9 RATIO (0.9-2.4); AST(SGOT) 20 U/L (15-37); Alanine Aminotransfer ALT/SGPT 23 U/L (13-56); Albumin, Serum 3.6 g/dL (3.2-5.0); Alkaline Phosphatase 118 U/L (45-117); Anion Gap 8 (5-15); BUN 21 mg/dL (7-18); Calcium,Total 9.6 mg/dL (8.5-10.1); Chloride 102 mmol/L (98-107); EST Glomerular Filtration Rate 59 mL/min (>60); Est Glom Filt Rate - Afr Amer 72 mL/min (>60); Globulin 3.9 g/dL (2.2-4.2); Glucose 298 mg/dL (74-106); Potassium 4.5 mmol/L (3.5-5.1); Protein, Total 7.5 g/dL (6.4-8.2); Sodium Level 136 mmol/L (136-145)
== END | disposition home or self-care (01) ==
PROVIDERS: PCP Nurse Practitioner; Referring Provider Nurse Practitioner; Visit Provider Nurse Practitioner
DX: E11.10 Type 2 diabetes mellitus with ketoacidosis without coma (principal); K21.9 Gastro-esophageal reflux disease without esophagitis; I10 Essential (primary) hypertension
CPT/HCPCS: 80053; 85025

== ENCOUNTER → 2024-07-18 | Outpatient (CLI) | payer BC, SELFPAY | END | disposition home or self-care (01) | PROVIDERS: PCP Nurse Practitioner; Referring Provider Nurse Practitioner; Visit Provider Nurse Practitioner | DX: L02.413 Cutaneous abscess of right upper limb (principal) | CPT/HCPCS: 87070; 87077; 87186; 87205 ==

== ENCOUNTER → 2024-07-27 | Outpatient (CLI) | payer BC, SELFPAY ==
[2024-07-27 21:57] LABS: Absolute Lymphocyte Count 3.01 X10^3/uL (0.83-4.51); Absolute Neutrophil Count 3.6 X10^3/uL (2.0-7.7); Basophil# 0.09 X10^3/uL; Basophil% 1.2 % (0-1); Eosinophil# 0.22 X10^3/uL; Eosinophils% 2.8 % (0-5); Hematocrit 34.6 % (37-47); Hemoglobin 10.8 g/dL (12.0-15.0); Lymphocyte # 3.01 X10^3/ul (0.83-4.51); Mean Corp Hgb Conc 31.2 g/dL (32-36); Mean Corpuscular Hgb 28.1 pg (27.0-32.0); Mean Corpuscular Volume 90.1 fL (81-99); Mean Platelet Vol. 9.9 fl (6.2-12.0); Monocyte# 0.69 X10^3/uL; Monocyte% 8.9 % (0-10); NRBC Flagged by Analyzer 0 % (0-5); Neutrophil # 3.64 X10^3/uL (2.7-7.7); Neutrophil % 47.2 % (47-70); Platelet Count 443 K/mm3 (150-450); RBC Distribution Width CV 13.9 % (11.6-14.6); RBC Distribution Width SD 45.5 fl (35.1-43.9); Red Blood Count 3.84 M/mm3 (4.2-5.4); White Blood Count 7.7 K/mm3 (4.4-11.0)
[2024-07-27 22:14] LABS: ALB/GLOB Ratio 0.7 RATIO (0.9-2.4); AST(SGOT) 42 U/L (15-37); Alanine Aminotransfer ALT/SGPT 43 U/L (13-56); Albumin, Serum 2.5 g/dL (3.2-5.0); Alkaline Phosphatase 89 U/L (45-117); Anion Gap 3 (5-15); BUN 19 mg/dL (7-18); BUN/Creat Ratio 24.4 RATIO (10-20); CRP 5.18 mg/L (0.0-3.0); Calcium,Total 9.5 mg/dL (8.5-10.1); Chloride 107 mmol/L (98-107); Creatinine, Serum 0.78 mg/dL (0.55-1.02); EST Glomerular Filtration Rate 79 mL/min (>60); Est Glom Filt Rate - Afr Amer 96 mL/min (>60); Globulin 3.8 g/dL (2.2-4.2); Glucose 153 mg/dL (74-106); Potassium 5.2 mmol/L (3.5-5.1); Protein, Total 6.3 g/dL (6.4-8.2); Sodium Level 139 mmol/L (136-145)
== END | disposition home or self-care (01) ==
PROVIDERS: PCP Nurse Practitioner; Referring Provider Nurse Practitioner; Visit Provider Nurse Practitioner
DX: I50.9 Heart failure, unspecified (principal); E13.9 Other specified diabetes mellitus without complications
CPT/HCPCS: 80053; 85025; 86140

== ENCOUNTER 2024-08-15 09:15 | Outpatient (RCR) | payer BC, SELFPAY ==
[2024-07-25 09:01] VITALS: BP 145/63; PULSE 87; TEMP 36.3
[2024-08-01 09:15] VITALS: BP 170/75; PULSE 81; RESP 18; TEMP 36.4
[2024-08-08 09:21] VITALS: BP 119/71; PULSE 92; RESP 18; TEMP 36.3
[2024-08-15 09:20] VITALS: BP 182/79; PULSE 81; RESP 18; TEMP 36.4
== END 2024-08-20 23:59 | disposition home or self-care (01) ==
LOC: WC 09:15
PROVIDERS: PCP Nurse Practitioner; Referring Provider Nurse Practitioner; Visit Provider Nurse Practitioner
DX: L02.413 Cutaneous abscess of right upper limb (principal); E13.9 Other specified diabetes mellitus without complications; R60.0 Localized edema; A49.02 Methicillin resistant Staphylococcus aureus infection, unspecified site; F17.200 Nicotine dependence, unspecified, uncomplicated; T14.8XXA Other injury of unspecified body region, initial encounter; Z91.199 Patient's noncompliance with other medical treatment and regimen due to unspecified reason
CPT/HCPCS: 11042; 87070; 87075; 87077; 87186; 87205; 99213; G0463

== ENCOUNTER 2024-09-19 09:15 | Outpatient (RCR) | payer BC, SELFPAY ==
[2024-08-21 00:33] VITALS: BP 182/79; PULSE 81; RESP 18; TEMP 36.4
[2024-08-22 08:22] VITALS: BP 120/70; PULSE 85; RESP 18; TEMP 36.9
--- NOTE | 2024-08-22 09:22 | PN.PCM_ITS ---
History of Present Illness Date of Service: 08/22/24 Chief Complaint: Right shoulder wound nonhealing chronic History of Wound: 64-year-old white female that fell approximately 3 months ago onto her right shoulder blade took a nasty fall she states and injured her right shoulder in a brace that and she is diabetic noncompliant and uncontrolled. And it developed into a huge lump hardened with crusted slough on top is very painful was actually making her nauseous and throw up. Patient finally came to me and states she could not take the pain anymore and it was like a hardened lump on her right shoulder blade. Cultures showed Staph aureus after I debrided off the top layer of slough with a #15 blade and started on Bactrim DS and metronidazole just in case there is anaerobes. Patient then was told to see her back at the wound center the following Tuesday because I could take better care of it there. Progress of Wound: Stil has the open wound in the upper R scapula outside measurements smaller but still has undermining and and tunnel at 12 . Patient tolerating treatment well and no odor noted and ispacking with iodoform guaze. will continue packing. Subjective Subjective Patient agreeable to the plan Objective Data Objective Data Looks clean and dry no discoloration noted no odor has undermining and tunneling bleeds well with debridement Vital Signs: Vital Signs Temp Pulse Resp BP O2 Del Method 98.5 F 85 18 120/70 Room Air 08/22/24 08:22 08/22/24 08:22 08/22/24 08:22 08/22/24 08:22 08/22/24 08:22 Oxygen Delivery Method Room Air Lab / Micro Data Attestation: I reviewed the patient's lab results. Physical Exam Const oriented x3 General Appearance: cooperative Exam Limitations: no limitations HEENT Head and Scalp: normal to inspection Face and Sinus: normal facial exam Nose: external nose normal General Ear: hearing grossly impaired External Ear: external ears normal Mouth: oral and palatal mucosa normal Eyes General Eye: normal appearance of both eyes Resp normal respiratory effort Effort and Inspection: able to speak in complete sentences Cardio regular rate and regular rhythm Palpation: normal PMI Rate: regular rate Rhythm: regular rhythm Back/Spine Thoracic Spine / Upper Back: other soft tissue findings right (Open wound with purulent matter) Skin General Skin Exam: other Open wound right scapular area Rashes: rashes noted Wounds: wounds noted Neuro oriented x3 Psych Appearance: grossly normal Speech: normal speech Thought Content: normal thought content Judgement: judgement good Debridement Note Debridement Note Wound debrided: Right scapular open wound from trauma Type of Debridement: Excisional debridement Anesthesia Used: 5% Lidocaine Gel Depth: Down to and including healthy tissue, in the subcutaneous layer and to muscle Percentage of wound debrided: 100 Instrument Used: 3mm curette Tissue Removed: fibrin and blood Amount of bleeding with debridement: Mild Bleeding Controlled with: Compression and gauze Patient tolerated procedure: Patient tolerated procedure well Post-Debridement Measurements and Additional Note: Post-Debridement Measurements/Treatment - Nurse 1 - General Ulcer Assessment Start: 08/22/24 08:22 Freq: Status: Active Protocol: JAC Activity Type Activity Date Activity User E-sign Co-sign Detail Recorded Client Recorded Date Recorded By Document 08/22/24 08:22 SENG [id number] 08/22/24 08:27 KW 08/22/24 08:22 CHRISTY - Today's Visit Information Type of service 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 Any new allergies or adverse reactions No Had a fall/change in ADL's that may No increase risk of falls Signs or symptoms of abuse and/or No neglect since last visit Have you been in the hospital since your No last visit? Has dressing in place as prescribed Yes Has compression in place as prescribed N/A Has offloadiing in place as prescribed N/A Experienced any changes in pain level or No management Left Footwear Regular Shoe Right Footwear Regular Shoe Pain Scale: 0-10 Numeric Is Patient Pain Free? Yes - Nurse 1 - General Ulcer Measurement Start: 08/22/24 08:22 Freq: Status: Active Protocol: Activity Type Activity Date Activity User E-sign Co-sign Detail Recorded Client Recorded Date Recorded By Document 08/22/24 08:22 [id number] 08/22/24 08:27 08/22/24 08:22 Wound Center Nurse 1 right scapula- cluster -Current Size (cm) - Length 0.6 -Current Size (cm) - Width 0.4 -Current Size (cm) - Depth 1 -Total Square Cm 0.24 -Date of Last Picture (Recall this 08/22/24 field) -Tunneling Yes -Tunneling Position (O'clock) 12 -Tunneling Distance (cm) 2.2 -Exudate Amt Medium -Exudate Type Serosanguineous -Wound Margin Distinct, Outline Attached -Granulation Amt Medium (34-66%) -Granulation Quality [place],Red -Necrosis Amt Medium (34-66%) -Necrotic Tissue Type Adherent Slough -Texture (Asia-wound Skin Appearance) Assessed -Moisture (Asia-wound Skin Appearance) Assessed, Maceration -Color (Asia-wound Skin Appearance) Assessed -Temperature (Asia-wound Skin No Abnormality Appearance) (Pt Warm) -Tenderness on Palpation (Asia-wound No Skin Appearance) -Ulcer Cleansing Rinsed/ Irrigated with Saline -Foul Odor after Cleansing No -Anesthetic Used 5% Lidocaine Gel WC - Nurse 2 - General Ulcer CM Notes Start: 08/22/24 08:22 Freq: Status: Active Protocol: Activity Type Activity Date Activity User E-sign Co-sign Detail Recorded Client Recorded Date Recorded By Document 08/22/24 09:11 [facility] [id number] 08/22/24 09:15 [facility] 08/22/24 09:11 Wound Center Nurse 2 -Time 09:11 -Correct Patient Yes -Correct Side, Site, Position Yes -Correct Procedure Yes -Procedure Performed Yes -Type of Procedure Debridement -Clinical Debridement Subcutaneous -Tissue Removed Subcutaneous -Post Debridement (cm) - Length 0.7 -Post Debridement (cm) - Width 0.5 -Post Debridement (cm) - Depth 0.6 -Total Square (Post) (cm) 0.35 -Area of Debridement (cm) - Length 0.7 -Area of Debridement (cm) - Width 0.5 -Total Square (Area) (cm) 0.35 -Tunneling Yes -Tunneling Position (O'clock) 12 -Tunneling Distance (cm) 2.0 -Undermining/Tunneling Yes -Undermining/Tunneling Starts (O'clock 1 ) -Undermining/Tunneling Ends (O'clock) 2 -Maximum Distance (cm) 1.2 -Undermining/Tunneling Starts #2 (O' 9 clock) -Undermining/Tunneling Ends #2 (O' 11 clock) -Maximum Distance #2 (cm) 0.5 -Circular Undermining No -Wound/Ulcer Outcome Not Healed -Ulcer Cleansing Rinsed/ Irrigated with Saline -Foul Odor after Cleansing No -Bioengineered Tissue No -Bleeding Controlled with Pressure -Treatment Response Procedure Tolerated Well -Debridement - Subq, 1st 20sq cm Yes Pain Scale: 0-10 Numeric Is Patient Pain Free? Yes - Nurse 3 - General Ulcer D/C NN Start: 08/22/24 08:22 Freq: Status: Active Protocol: Activity Type Activity Date Activity User E-sign Co-sign Detail Recorded Client Recorded Date Recorded By Document 08/22/24 09:20 [facility] [id number] 08/22/24 09:21 [facility] 08/22/24 09:20 Wound Care Center Nurse 3 right scapula- cluster -Ulcer Cleansing Rinsed/ Irrigated with Saline -Foul Odor after Cleansing No -Primary Dressing Applied Mepilex Border -Other Dressing 1/4 in nugauze -Primary Dressing Covered/Secured with Dry Gauze -Mepilex Border 1 Treatment Response Procedure Tolerated Well Pain Scale: 0-10 Numeric Is Patient Pain Free? Yes - Visit Discharge Discharge Condition Stable Ambulatory Status Ambulatory Transportation Private Auto
--- NOTE | 2024-08-23 08:14 | WC ---
PHOTO 08/22/24 RIGHT SCAPULA CLUSTER
[2024-08-29 09:20] VITALS: BP 153/63; PULSE 85; RESP 16; TEMP 35.9
--- NOTE | 2024-08-29 11:15 | PCM.WC.PN ---
History of Present Illness Date of Service: 08/29/24 Chief Complaint: Right shoulder wound nonhealing chronic History of Wound: 64-year-old white female that fell approximately 3 months ago onto her right shoulder blade took a nasty fall she states and injured her right shoulder in a brace that and she is diabetic noncompliant and uncontrolled. And it developed into a huge lump hardened with crusted slough on top is very painful was actually making her nauseous and throw up. Patient finally came to me and states she could not take the pain anymore and it was like a hardened lump on her right shoulder blade. Cultures showed Staph aureus after I debrided off the top layer of slough with a #15 blade and started on Bactrim DS and metronidazole just in case there is anaerobes. Patient then was told to see her back at the wound center the following Tuesday because I could take better care of it there. Progress of Wound: Still has the open wound in the upper R scapula outside measurements smaller but still has undermining and and tunnel at 12 . Patient tolerating treatment well and no odor noted and ispacking with iodoform guaze. will continue packing. Measurements are better from last week we will let her go 2 weeks this time. Subjective Subjective Patient is agreeable to plan Objective Data Objective Data Was able to remove part of the sac that was up inside the wound. I managed to pull it out and cut it with scissors out of the area from the abscess. Measurements are smaller and less tunneling and smaller measurements bleeding easily with debridement. Vital Signs: Vital Signs Temp Pulse Resp BP O2 Del Method 96.7 F L 85 16 153/63 H Room Air 08/29/24 09:20 08/29/24 09:20 08/29/24 09:20 08/29/24 09:20 08/29/24 09:20 Oxygen Delivery Method Room Air Physical Exam Const oriented x3 General Appearance: cooperative Exam Limitations: no limitations HEENT Head and Scalp: normal to inspection Face and Sinus: normal facial exam Nose: external nose normal General Ear: hearing grossly impaired External Ear: external ears normal Mouth: oral and palatal mucosa normal Eyes General Eye: normal appearance of both eyes Resp normal respiratory effort Effort and Inspection: able to speak in complete sentences Cardio regular rate and regular rhythm Palpation: normal PMI Rate: regular rate Rhythm: regular rhythm Back/Spine Thoracic Spine / Upper Back: other soft tissue findings right (Open wound with purulent matter) Skin General Skin Exam: other Open wound right scapular area Rashes: rashes noted Wounds: wounds noted Neuro oriented x3 Psych Appearance: grossly normal Speech: normal speech Thought Content: normal thought content Judgement: judgement good Debridement Note Debridement Note Wound debrided: Right scapular open wound from trauma Type of Debridement: Excisional debridement Anesthesia Used: 5% Lidocaine Gel Depth: Down to and including healthy tissue, in the subcutaneous layer and to muscle Percentage of wound debrided: 100 Instrument Used: 3mm curette Tissue Removed: fibrin and blood Amount of bleeding with debridement: Mild Bleeding Controlled with: Compression and gauze Patient tolerated procedure: Patient tolerated procedure well Post-Debridement Measurements and Additional Note: Post-Debridement Measurements/Treatment - Nurse 1 - General Ulcer Assessment Start: 08/22/24 08:22 Freq: Status: Active Protocol: CHRISTY.ALVARO Activity Type Activity Date Activity User E-sign Co-sign Detail Recorded Client Recorded Date Recorded By Document 08/22/24 08:22 [id number] 08/22/24 08:27 KW Document 08/29/24 09:20 KW [id number] 08/29/24 09:28 KW 08/22/24 08/29/24 08:22 09:20 - Today's Visit Information Type of service Follow-up Visit Follow-up Visit (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/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 ) ) Arrival Mode Ambulatory Ambulatory Patient Identification Verified (Name & Yes Yes ) Vital Signs Temperature (97.8 F-99.1 F) 98.5 F 96.7 F L Temperature Source Temporal Temporal Pulse Rate (60-100) 85 85 Pulse Location Monitor Monitor Respiratory Rate (12-18) 18 16 Respiratory rate source Observation Observation Oxygen Delivery Method Room Air Room Air Blood Pressure (90/60-120/80) 120/70 153/63 H Blood Pressure Mean (mm Hg) 86 93 Source Monitor Monitor Position Sitting Sitting Blood Pressure Location Left Arm Left Arm History Since Last Visit- (Skip if this is Patient's initial visit) Have you changed medications since your No No last visit? Any new allergies or adverse reactions No No Had a fall/change in ADL's that may No No increase risk of falls Signs or symptoms of abuse and/or No No neglect since last visit Have you been in the hospital since your No No last visit? Has dressing in place as prescribed Yes Yes Has compression in place as prescribed N/A N/A Has offloadiing in place as prescribed N/A N/A Experienced any changes in pain level or No No management Left Footwear Regular Shoe Regular Shoe Right Footwear Regular Shoe Regular Shoe Pain Scale: 0-10 Numeric Is Patient Pain Free? Yes Yes WC - Nurse 1 - General Ulcer Measurement Start: 08/22/24 08:22 Freq: Status: Active Protocol: Activity Type Activity Date Activity User E-sign Co-sign Detail Recorded Client Recorded Date Recorded By Document 08/22/24 08:22 KW [id number] 08/22/24 08:27 KW Document 08/29/24 09:20 KW [id number] 08/29/24 09:28 KW 08/22/24 08/29/24 08:22 09:20 Wound Center Nurse 1 right scapula- cluster -Current Size (cm) - Length 0.6 1 -Current Size (cm) - Width 0.4 0.5 -Current Size (cm) - Depth 1 0.9 -Total Square Cm 0.24 0.5 -Date of Last Picture (Recall this 08/22/24 field) -Tunneling Yes Yes -Tunneling Position (O'clock) 12 12 -Tunneling Distance (cm) 2.2 2 -Exudate Amt Medium Medium -Exudate Type Serosanguineous Serosanguineous -Wound Margin Distinct, Distinct, Outline Outline Attached Attached -Granulation Amt Medium (34-66%) Large (67-100%) -Granulation Quality [place],Red Red -Necrosis Amt Medium (34-66%) -Necrotic Tissue Type Adherent Slough -Texture (Asia-wound Skin Appearance) Assessed Assessed -Moisture (Asia-wound Skin Appearance) Assessed, Assessed, Maceration Maceration -Color (Asia-wound Skin Appearance) Assessed Assessed -Temperature (Asia-wound Skin No Abnormality No Abnormality Appearance) (Pt Warm) (Pt Warm) -Tenderness on Palpation ([place]-wound No No Skin Appearance) -Ulcer Cleansing Rinsed/ Rinsed/ Irrigated with Irrigated with Saline Saline -Foul Odor after Cleansing No No -Anesthetic Used 5% Lidocaine 5% Lidocaine Gel Gel WC - Nurse 2 - General Ulcer CM Notes Start: 08/22/24 08:22 Freq: Status: Active Protocol: Activity Type Activity Date Activity User E-sign Co-sign Detail Recorded Client Recorded Date Recorded By Document 08/22/24 09:11 [facility] [id number] 08/22/24 09:15 [facility] Document 08/29/24 09:53 [facility] [id number] 08/29/24 09:59 [facility] 08/22/24 08/29/24 09:11 09:53 Wound Center Nurse 2 right scapula- cluster -Time 09:11 09:53 -Correct Patient Yes Yes -Correct Side, Site, Position Yes Yes -Correct Procedure Yes Yes -Procedure Performed Yes Yes -Type of Procedure Debridement Debridement -Clinical Debridement Subcutaneous Subcutaneous -Tissue Removed Subcutaneous Subcutaneous -Post Debridement (cm) - Length 0.7 0.8 -Post Debridement (cm) - Width 0.5 0.5 -Post Debridement (cm) - Depth 0.6 0.5 -Total Square (Post) (cm) 0.35 0.40 -Area of Debridement (cm) - Length 0.7 0.8 -Area of Debridement (cm) - Width 0.5 0.5 -Total Square (Area) (cm) 0.35 0.40 -Tunneling Yes No -Tunneling Position (O'clock) 12 -Tunneling Distance (cm) 2.0 -Undermining/Tunneling Yes Yes -Undermining/Tunneling Starts (O'clock 1 12 ) -Undermining/Tunneling Ends (O'clock) 2 2 -Maximum Distance (cm) 1.2 1.0 -Undermining/Tunneling Starts #2 (O' 9 clock) -Undermining/Tunneling Ends #2 (O' 11 clock) -Maximum Distance #2 (cm) 0.5 -Circular Undermining No No -Wound/Ulcer Outcome Not Healed Not Healed -Ulcer Cleansing Rinsed/ Rinsed/ Irrigated with Irrigated with Saline Saline -Foul Odor after Cleansing No No -Bioengineered Tissue No No -Bleeding Controlled with Pressure Pressure -Treatment Response Procedure Procedure Tolerated Well Tolerated Well -Debridement - Subq, 1st 20sq cm Yes Yes Pain Scale: 0-10 Numeric Is Patient Pain Free? Yes Yes WC - Nurse 3 - General Ulcer D/C NN Start: 08/22/24 08:22 Freq: Status: Active Protocol: Activity Type Activity Date Activity User E-sign Co-sign Detail Recorded Client Recorded Date Recorded By Document 08/22/24 09:20 [id number] 08/22/24 09:21 BM Document 08/29/24 10:17 [facility] [id number] 08/29/24 10:18 [facility] 08/22/24 08/29/24 09:20 10:17 Wound Care Center Nurse 3 right scapula- cluster -Ulcer Cleansing Rinsed/ Rinsed/ Irrigated with Irrigated with Saline Saline -Foul Odor after Cleansing No No -Primary Dressing Applied Mepilex Border Mepilex Border, Nugauze, Iodoform 1/4in -Other Dressing 1/4 in nugauze -Primary Dressing Covered/Secured with Dry Gauze -Mepilex Border 1 1 -Nugauze, Iodoform 1/4in 1 Treatment Response Procedure Procedure Tolerated Well Tolerated Well Pain Scale: 0-10 Numeric Is Patient Pain Free? Yes Yes WC - Visit Discharge Discharge Condition Stable Stable Ambulatory Status Ambulatory Ambulatory Transportation Private Auto Private Auto Assessment/Plan Assessment/Plan (1) MRSA (methicillin resistant Staphylococcus aureus): CODE(S): A49.02 - Methicillin resistant Staphylococcus aureus infection, unspecified site (2) Abscess of right shoulder: CODE(S): L02.413 - Cutaneous abscess of right upper limb (3) Diabetes 1.5, managed as type 1: CODE(S): E13.9 - Other specified diabetes mellitus without complications (4) Smoking addiction: CODE(S): F17.200 - Nicotine dependence, unspecified, uncomplicated (5) Nonhealing nonsurgical wound with fat layer exposed: CODE(S): T14.8XXA - Other injury of unspecified body region, initial encounter PLAN: Wash area with antibacterial soap and water pack with quarter inch iodoform gauze dressing over top and ABD. Daily Follow-up in 3 week Cultures came back rare for staph so we did not treat her with an antibiotic at this time wound looks good.
[2024-09-19 09:00] VITALS: BP 137/77; PULSE 88; RESP 18; TEMP 36.6
--- NOTE | 2024-09-19 09:57 | PCM.WC.PN ---
History of Present Illness Date of Service: 09/19/24 Chief Complaint: Right shoulder wound nonhealing chronic History of Wound: 64-year-old white female that fell approximately 3 months ago onto her right shoulder blade took a nasty fall she states and injured her right shoulder in a brace that and she is diabetic noncompliant and uncontrolled. And it developed into a huge lump hardened with crusted slough on top is very painful was actually making her nauseous and throw up. Patient finally came to me and states she could not take the pain anymore and it was like a hardened lump on her right shoulder blade. Cultures showed Staph aureus after I debrided off the top layer of slough with a #15 blade and started on Bactrim DS and metronidazole just in case there is anaerobes. Patient then was told to see her back at the wound center the following Tuesday because I could take better care of it there. Progress of Wound: Measurements are much smaller at the 10:00 its much smaller for packing improving the skin around it is looks good she just has the generalized whole with some tunneling at 10:00. Subjective Subjective Patient is pleased with the outcomes Objective Data Objective Data Will continue packing with the quarter inch iodoform and have patient follow-up in 2 weeks sooner if more issues Vital Signs: Vital Signs Temp Pulse Resp BP O2 Del Method 97.8 F 88 18 137/77 H Room Air 09/19/24 09:00 09/19/24 09:00 09/19/24 09:00 09/19/24 09:00 08/29/24 09:20 Oxygen Delivery Method Room Air Lab / Micro Data Attestation: I reviewed the patient's lab results. Physical Exam Const oriented x3 General Appearance: cooperative Exam Limitations: no limitations HEENT Head and Scalp: normal to inspection Face and Sinus: normal facial exam Nose: external nose normal General Ear: hearing grossly impaired External Ear: external ears normal Mouth: oral and palatal mucosa normal Eyes General Eye: normal appearance of both eyes Resp normal respiratory effort Effort and Inspection: able to speak in complete sentences Cardio regular rate and regular rhythm Palpation: normal PMI Rate: regular rate Rhythm: regular rhythm Back/Spine Thoracic Spine / Upper Back: other soft tissue findings right (Open wound with purulent matter) Skin General Skin Exam: other Open wound right scapular area Rashes: rashes noted Wounds: wounds noted Neuro oriented x3 Psych Appearance: grossly normal Speech: normal speech Thought Content: normal thought content Judgement: judgement good Debridement Note Debridement Note Wound debrided: Right scapular open wound from trauma Type of Debridement: Excisional debridement Anesthesia Used: 5% Lidocaine Gel Depth: Down to and including healthy tissue, in the subcutaneous layer and to muscle Percentage of wound debrided: 100 Instrument Used: 3mm curette Tissue Removed: fibrin and blood Amount of bleeding with debridement: Mild Bleeding Controlled with: Compression and gauze Patient tolerated procedure: Patient tolerated procedure well Post-Debridement Measurements and Additional Note: Post-Debridement Measurements/Treatment - Nurse 1 - General Ulcer Assessment Start: 08/22/24 08:22 Freq: Status: Active Protocol: JAC Activity Type Activity Date Activity User E-sign Co-sign Detail Recorded Client Recorded Date Recorded By Document 08/22/24 08:22 KW [id number] 08/22/24 08:27 KW Document 08/29/24 09:20 KW [id number] 08/29/24 09:28 KW Document 09/19/24 09:00 DL [id number] 09/19/24 09:04 DL 08/22/24 08/29/24 09/19/24 08:22 09:20 09:00 - Today's Visit Information Type of service Follow-up Visit Follow-up Visit Follow-up Visit (Physician/ASSISTED LIVING CARE MANAGER (Physician/ASSISTED LIVING CARE MANAGER (Physician/ASSISTED LIVING CARE MANAGER ) ) ) Arrival Mode Ambulatory Ambulatory Ambulatory Transfer Assistance None Patient Identification Verified (Name & Yes Yes Yes ) Patient Requires Transmission-Based No Precautions Vital Signs Temperature (97.8 F-99.1 F) 98.5 F 96.7 F L 97.8 F Temperature Source Temporal Temporal Temporal Pulse Rate (60-100) 85 85 88 Pulse Location Monitor Monitor Monitor Respiratory Rate (12-18) 18 16 18 Respiratory rate source Observation Observation Observation Oxygen Delivery Method Room Air Room Air Blood Pressure (90/60-120/80) 120/70 153/63 H 137/77 H Blood Pressure Mean (mm Hg) 86 93 97 Source Monitor Monitor Monitor Position Sitting Sitting Blood Pressure Location Left Arm Left Arm History Since Last Visit- (Skip if this is Patient's initial visit) Have you changed medications since your No No No last visit? Any new allergies or adverse reactions No No No Had a fall/change in ADL's that may No No No increase risk of falls Signs or symptoms of abuse and/or No No No neglect since last visit Have you been in the hospital since your No No No last visit? Has dressing in place as prescribed Yes Yes Yes Has compression in place as prescribed N/A N/A N/A Has offloadiing in place as prescribed N/A N/A N/A Experienced any changes in pain level or No No No management Left Footwear Regular Shoe Regular Shoe Right Footwear Regular Shoe Regular Shoe Pain Scale: 0-10 Numeric Is Patient Pain Free? Yes Yes Yes WC - Nurse 1 - General Ulcer Measurement Start: 08/22/24 08:22 Freq: Status: Active Protocol: Activity Type Activity Date Activity User E-sign Co-sign Detail Recorded Client Recorded Date Recorded By Document 08/22/24 08:22 KW [id number] 08/22/24 08:27 KW Document 08/29/24 09:20 KW [id number] 08/29/24 09:28 KW Document 09/19/24 09:00 DL [id number] 09/19/24 09:04 DL 08/22/24 08/29/24 09/19/24 08:22 09:20 09:00 Wound Center Nurse 1 right scapula- cluster -Current Size (cm) - Length 0.6 1 0.8 -Current Size (cm) - Width 0.4 0.5 0.5 -Current Size (cm) - Depth 1 0.9 0.5 -Total Square Cm 0.24 0.5 0.40 -Date of Last Picture (Recall this 08/22/24 field) -Photo Taken Yes -Tunneling Yes Yes -Tunneling Position (O'clock) 12 12 1 -Tunneling Distance (cm) 2.2 2 0.8 -Exudate Amt Medium Medium Small -Exudate Type Serosanguineous Serosanguineous Serosanguineous -Wound Margin Distinct, Distinct, Distinct, Outline Outline Outline Attached Attached Attached -Granulation Amt Medium (34-66%) Large (67-100%) Small (1-33%) -Granulation Quality [place],Red [place] -Necrosis Amt Medium (34-66%) Small (1-33%) -Necrotic Tissue Type Adherent Slough Adherent Slough -Structure Exposed N/A -Texture (Asia-wound Skin Appearance) Assessed Assessed Scarring -Moisture (Asia-wound Skin Appearance) Assessed, Assessed, No Abnormality Maceration Maceration -Color (Asia-wound Skin Appearance) Assessed Assessed No Abnormality -Temperature (Asia-wound Skin No Abnormality No Abnormality No Abnormality Appearance) (Pt Warm) (Pt Warm) (Pt Warm) -Tenderness on Palpation (Asia-wound No No No Skin Appearance) -Ulcer Cleansing Rinsed/ Rinsed/ Soap and Water Irrigated with Irrigated with Saline Saline -Foul Odor after Cleansing No No No -Anesthetic Used 5% Lidocaine 5% Lidocaine 5% Lidocaine Gel Gel Gel WC - Nurse 2 - General Ulcer CM Notes Start: 08/22/24 08:22 Freq: Status: Active Protocol: Activity Type Activity Date Activity User E-sign Co-sign Detail Recorded Client Recorded Date Recorded By Document 08/22/24 09:11 [facility] [id number] 08/22/24 09:15 [facility] Document 08/29/24 09:53 [facility] [id number] 08/29/24 09:59 [facility] Document 09/19/24 09:09 [facility] [id number] 09/19/24 09:12 [facility] 08/22/24 08/29/24 09/19/24 09:11 09:53 09:09 Wound Center Nurse 2 right scapula- cluster -Time 09:11 09:53 09:09 -Correct Patient Yes Yes Yes -Correct Side, Site, Position Yes Yes Yes -Correct Procedure Yes Yes Yes -Procedure Performed Yes Yes Yes -Type of Procedure Debridement Debridement Debridement -Clinical Debridement Subcutaneous Subcutaneous Subcutaneous -Tissue Removed Subcutaneous Subcutaneous Subcutaneous -Post Debridement (cm) - Length 0.7 0.8 1 -Post Debridement (cm) - Width 0.5 0.5 0.6 -Post Debridement (cm) - Depth 0.6 0.5 0.3 -Total Square (Post) (cm) 0.35 0.40 0.6 -Area of Debridement (cm) - Length 0.7 0.8 1 -Area of Debridement (cm) - Width 0.5 0.5 0.6 -Total Square (Area) (cm) 0.35 0.40 0.6 -Tunneling Yes No No -Tunneling Position (O'clock) 12 -Tunneling Distance (cm) 2.0 -Undermining/Tunneling Yes Yes Yes -Undermining/Tunneling Starts (O'clock 1 12 12 ) -Undermining/Tunneling Ends (O'clock) 2 2 1 -Maximum Distance (cm) 1.2 1.0 0.7 -Undermining/Tunneling Starts #2 (O' 9 clock) -Undermining/Tunneling Ends #2 (O' 11 clock) -Maximum Distance #2 (cm) 0.5 -Circular Undermining No No No -Wound/Ulcer Outcome Not Healed Not Healed Not Healed -Ulcer Cleansing Rinsed/ Rinsed/ Rinsed/ Irrigated with Irrigated with Irrigated with Saline Saline Saline -Foul Odor after Cleansing No No No -Bioengineered Tissue No No No -Bleeding Controlled with Pressure Pressure Pressure -Treatment Response Procedure Procedure Procedure Tolerated Well Tolerated Well Tolerated Well -Debridement - Subq, 1st 20sq cm Yes Yes Yes Pain Scale: 0-10 Numeric Is Patient Pain Free? Yes Yes Yes - Nurse 3 - General Ulcer D/C NN Start: 08/22/24 08:22 Freq: Status: Active Protocol: Activity Type Activity Date Activity User E-sign Co-sign Detail Recorded Client Recorded Date Recorded By Document 08/22/24 09:20 [facility] [id number] 08/22/24 09:21 [facility] Document 08/29/24 10:17 [facility] [id number] 08/29/24 10:18 [facility] Document 09/19/24 09:20 CP [id number] 09/19/24 09:21 CP 08/22/24 08/29/24 09/19/24 09:20 10:17 09:20 Wound Care Center Nurse 3 right scapula- cluster -Ulcer Cleansing Rinsed/ Rinsed/ Rinsed/ Irrigated with Irrigated with Irrigated with Saline Saline Saline -Foul Odor after Cleansing No No No -Primary Dressing Applied Mepilex Border Mepilex Border, Mepilex Border Nugauze, Iodoform 1/4in -Other Dressing 1/4 in nugauze iodoform -Primary Dressing Covered/Secured with Dry Gauze -Mepilex Border 1 1 1 -Nugauze, Iodoform 1/4in 1 Treatment Response Procedure Procedure Procedure Tolerated Well Tolerated Well Tolerated Well Pain Scale: 0-10 Numeric Is Patient Pain Free? Yes Yes Yes - Visit Discharge Discharge Condition Stable Stable Stable Ambulatory Status Ambulatory Ambulatory Ambulatory Transportation Private Auto Private Auto Private Auto Clinical Summary of Care Provided Yes Assessment/Plan Assessment/Plan (1) MRSA (methicillin resistant Staphylococcus aureus): CODE(S): A49.02 - Methicillin resistant Staphylococcus aureus infection, unspecified site (2) Abscess of right shoulder: CODE(S): L02.413 - Cutaneous abscess of right upper limb (3) Diabetes 1.5, managed as type 1: CODE(S): E13.9 - Other specified diabetes mellitus without complications (4) Smoking addiction: CODE(S): F17.200 - Nicotine dependence, unspecified, uncomplicated (5) Nonhealing nonsurgical wound with fat layer exposed: CODE(S): T14.8XXA - Other injury of unspecified body region, initial encounter PLAN: Wash area with antibacterial soap and water pack with quarter inch iodoform gauze dressing over top and ABD. Daily Follow-up in 2 week Cultures came back rare for staph so we did not treat her with an antibiotic at this time wound looks good.
--- NOTE | 2024-09-20 09:33 | WC ---
PHOTO RIGHT SACRUM 09/19/24
--- NOTE | 2024-09-24 11:20 | WC ---
PHOTO 09/19/24 RIGHT SCAPULA
== END 2024-09-20 23:59 | disposition home or self-care (01) ==
LOC: WC 09:15
PROVIDERS: PCP Nurse Practitioner; Referring Provider Nurse Practitioner; Visit Provider Nurse Practitioner
DX: L02.413 Cutaneous abscess of right upper limb (principal); E13.9 Other specified diabetes mellitus without complications; A49.02 Methicillin resistant Staphylococcus aureus infection, unspecified site; F17.200 Nicotine dependence, unspecified, uncomplicated; T81.30XD Disruption of wound, unspecified, subsequent encounter
CPT/HCPCS: 11042

== ENCOUNTER 2024-10-03 08:42 | Outpatient (RCR) | payer BC, SELFPAY ==
[2024-09-21 00:41] VITALS: BP 182/79; PULSE 81; RESP 18; TEMP 36.4
[2024-10-03 08:48] VITALS: BP 148/75; PULSE 84; RESP 16; TEMP 36.5
--- NOTE | 2024-10-03 10:11 | PN.PCM_ITS ---
History of Present Illness Date of Service: 10/03/24 Chief Complaint: Right shoulder wound nonhealing chronic History of Wound: 64-year-old white female that fell approximately 3 months ago onto her right shoulder blade took a nasty fall she states and injured her right shoulder in a brace that and she is diabetic noncompliant and uncontrolled. And it developed into a huge lump hardened with crusted slough on top is very painful was actually making her nauseous and throw up. Patient finally came to me and states she could not take the pain anymore and it was like a hardened lump on her right shoulder blade. Cultures showed Staph aureus after I debrided off the top layer of slough with a #15 blade and started on Bactrim DS and metronidazole just in case there is anaerobes. Patient then was told to see her back at the wound center the following Tuesday because I could take better care of it there. Progress of Wound: Today the wound is healed patient be discharged from the wound center Subjective Subjective Patient is very pleased with outcomes Objective Data Objective Data All healed has a small divot but able to land but is completely closed. Patient will be discharged from the wound center Vital Signs: Vital Signs Temp Pulse Resp BP O2 Del Method 97.7 F L 84 16 148/75 H Room Air 10/03/24 08:48 10/03/24 08:48 10/03/24 08:48 10/03/24 08:48 10/03/24 08:48 Oxygen Delivery Method Room Air Lab / Micro Data Attestation: I reviewed the patient's lab results. Physical Exam Const oriented x3 General Appearance: cooperative Exam Limitations: no limitations HEENT Head and Scalp: normal to inspection Face and Sinus: normal facial exam Nose: external nose normal General Ear: hearing grossly impaired External Ear: external ears normal Mouth: oral and palatal mucosa normal Eyes General Eye: normal appearance of both eyes Resp normal respiratory effort Effort and Inspection: able to speak in complete sentences Cardio regular rate and regular rhythm Palpation: normal PMI Rate: regular rate Rhythm: regular rhythm Back/Spine Thoracic Spine / Upper Back: other soft tissue findings right (Open wound with purulent matter) Skin General Skin Exam: other Open wound right scapular area Rashes: rashes noted Wounds: wounds noted Neuro oriented x3 Psych Appearance: grossly normal Speech: normal speech Thought Content: normal thought content Judgement: judgement good Debridement Note Debridement Note No debridement was completed: No debridement was completed today Post-Debridement Measurements and Additional Note: Post-Debridement Measurements/Treatment CHRISTY - Nurse 1 - General Ulcer Assessment Start: 10/03/24 08:47 Freq: Status: Active Protocol: JAC Activity Type Activity Date Activity User E-sign Co-sign Detail Recorded Client Recorded Date Recorded By Document 10/03/24 08:48 AL [id number] 10/03/24 08:53 AL 10/03/24 08:48 WC - Today's Visit Information Type of service Follow-up Visit (Physician/RESUME WRITER ) Arrival Mode Ambulatory Accompanied by SELF Patient Identification Verified (Name & Yes ) Safety Precautions Fall Prevention Vital Signs Temperature (97.8 F-99.1 F) 97.7 F L Temperature Source Temporal Pulse Rate (60-100 beats/min) 84 Pulse Location Monitor Respiratory Rate (12-18 breaths/min) 16 Respiratory rate source Observation Oxygen Delivery Method Room Air Blood Pressure (90/60-120/80 mm Hg) 148/75 H Blood Pressure Mean (mm Hg) 99 Source Monitor Position Sitting Blood Pressure Location Right Arm History Since Last Visit- (Skip if this is Patient's initial visit) Has dressing in place as prescribed Yes Has compression in place as prescribed Yes Has offloadiing in place as prescribed Yes Experienced any changes in pain level or Yes management Left Footwear Regular Shoe Right Footwear Regular Shoe Pain Scale: 0-10 Numeric Is Patient Pain Free? Yes CHRISTY - Nurse 1 - General Ulcer Measurement Start: 10/03/24 08:47 Freq: Status: Active Protocol: Activity Type Activity Date Activity User E-sign Co-sign Detail Recorded Client Recorded Date Recorded By Document 10/03/24 08:48 AL [id number] 10/03/24 08:53 AL 10/03/24 08:48 Wound Center Nurse 1 right scapula- cluster -Current Size (cm) - Length 0.1 -Current Size (cm) - Width 0.1 -Current Size (cm) - Depth 0.1 -Total Square Cm 0.01 -Epithelialization Large 67-100% -Tunneling No -Undermining/Tunneling No -Circular Undermining No -Exudate Amt None Present -Wound Margin Thickened & Rolled Under -Granulation Amt None Present (0 %) -Slough/Fibrin No -Texture ([place]-wound Skin Appearance) Assessed,Callus -Moisture ([place]-wound Skin Appearance) Assessed -Color ([place]-wound Skin Appearance) Assessed -Temperature ([place]-wound Skin No Abnormality Appearance) (Pt Warm) -Tenderness on Palpation ([place]-wound No Skin Appearance) -Ulcer Cleansing Soap and Water -Foul Odor after Cleansing No -Anesthetic Used 4% Lidocaine Solution Lower Limb Edema Present NA WC - Nurse 2 - General Ulcer CM Notes Start: 10/03/24 08:47 Freq: Status: Active Protocol: Activity Type Activity Date Activity User E-sign Co-sign Detail Recorded Client Recorded Date Recorded By Document 10/03/24 09:03 [facility] [id number] 10/03/24 09:04 [facility] 10/03/24 09:03 Wound Center Nurse 2 right scapula- cluster -Post Debridement (cm) - Length 0 -Post Debridement (cm) - Width 0 -Post Debridement (cm) - Depth 0 -Total Square (Post) (cm) 0 -Area of Debridement (cm) - Length 0 -Area of Debridement (cm) - Width 0 -Total Square (Area) (cm) 0 -Wound/Ulcer Outcome Healed- Epithelialized Pain Scale: 0-10 Numeric Is Patient Pain Free? Yes Assessment/Plan Assessment/Plan (1) MRSA (methicillin resistant Staphylococcus aureus): CODE(S): A49.02 - Methicillin resistant Staphylococcus aureus infection, unspecified site (2) Abscess of right shoulder: CODE(S): L02.413 - Cutaneous abscess of right upper limb (3) Diabetes 1.5, managed as type 1: CODE(S): E13.9 - Other specified diabetes mellitus without complications (4) Smoking addiction: CODE(S): F17.200 - Nicotine dependence, unspecified, uncomplicated (5) Nonhealing nonsurgical wound with fat layer exposed: CODE(S): T14.8XXA - Other injury of unspecified body region, initial encounter PLAN: Discharge from the wound center follow-up as needed
--- NOTE | 2024-10-04 09:00 | WC ---
PHOTO 10/03/24 RIGHT SCAPULA
== END 2024-10-04 14:53 | disposition home or self-care (01) ==
LOC: WC 08:42
PROVIDERS: PCP Nurse Practitioner; Referring Provider Nurse Practitioner; Visit Provider Nurse Practitioner
DX: Z09 Encounter for follow-up examination after completed treatment for conditions other than malignant neoplasm (principal); E13.9 Other specified diabetes mellitus without complications; F17.200 Nicotine dependence, unspecified, uncomplicated; Z86.14 Personal history of Methicillin resistant Staphylococcus aureus infection
CPT/HCPCS: 99212; G0463

== ENCOUNTER → 2024-10-12 | Outpatient (CLI) | payer BC, SELFPAY ==
[2024-10-12 22:38] LABS: Absolute Lymphocyte Count 2.97 X10^3/uL (0.83-4.51); Absolute Neutrophil Count 3.6 X10^3/uL (2.0-7.7); Basophil# 0.05 X10^3/uL; Basophil% 0.7 % (0-1); Eosinophil# 0.26 X10^3/uL; Eosinophils% 3.5 % (0-5); Hematocrit 39.7 % (37-47); Hemoglobin 12.6 g/dL (12.0-15.0); Lymphocyte # 2.97 X10^3/ul (0.83-4.51); Mean Corp Hgb Conc 31.7 g/dL (32-36); Mean Corpuscular Hgb 28.8 pg (27.0-32.0); Mean Corpuscular Volume 90.8 fL (81-99); Mean Platelet Vol. 10.7 fl (6.2-12.0); Monocyte# 0.57 X10^3/uL; Monocyte% 7.7 % (0-10); NRBC Flagged by Analyzer 0 % (0-5); Neutrophil # 3.56 X10^3/uL (2.7-7.7); Platelet Count 316 K/mm3 (150-450); RBC Distribution Width CV 13.3 % (11.6-14.6); RBC Distribution Width SD 44.6 fl (35.1-43.9); Red Blood Count 4.37 M/mm3 (4.2-5.4); White Blood Count 7.4 K/mm3 (4.4-11.0)
[2024-10-12 22:55] LABS: ALB/GLOB Ratio 1.2 RATIO (0.9-2.4); AST(SGOT) 15 U/L (15-37); Alanine Aminotransfer ALT/SGPT 21 U/L (13-56); Albumin, Serum 3.7 g/dL (3.2-5.0); Alkaline Phosphatase 92 U/L (45-117); Anion Gap 2 (5-15); BUN 15 mg/dL (7-18); BUN/Creat Ratio 19.8 RATIO (10-20); Calcium,Total 9.2 mg/dL (8.5-10.1); Chloride 104 mmol/L (98-107); Creatinine, Serum 0.76 mg/dL (0.55-1.02); EST Glomerular Filtration Rate 82 mL/min (>60); Est Glom Filt Rate - Afr Amer 99 mL/min (>60); Globulin 3.2 g/dL (2.2-4.2); Glucose 421 mg/dL (74-106); Potassium 4.6 mmol/L (3.5-5.1); Protein, Total 6.9 g/dL (6.4-8.2); Sodium Level 137 mmol/L (136-145)
[2024-10-12 22:58] LABS: BNP,B-Type NATRIURETIC PEPTIDE 82.8 pg/mL (0-100)
== END | disposition home or self-care (01) ==
PROVIDERS: PCP Nurse Practitioner; Referring Provider Nurse Practitioner; Visit Provider Nurse Practitioner
DX: R60.0 Localized edema (principal); R63.5 Abnormal weight gain; R73.9 Hyperglycemia, unspecified
CPT/HCPCS: 80053; 83880; 85025